=== PATIENT | female | born 1955 | race African-American/Black ===

== ENCOUNTER 2017-05-24 12:30 | Emergency (ER) | payer SELFPAY ==
[2017-05-24] MEDS ORDERED: cefTRIAXone\\ROCEPHIN 500 MG VIAL ONE (13:15)
[2017-05-24] MEDS ORDERED: Ketorolac Tromethamine 30 MG/ML VIAL ONE (13:15)
[2017-05-24] MEDS ORDERED: Lidocaine 1% 20 ML MDV ONE (13:17)
[2017-05-24 13:29] LABS: Bilirubin Negative (Negative); Blood, Urine Small (Negative); Clarity Cloudy (Clear); Glucose, Urine (Dipstick) Negative (Negative); Leukocyte Large (Negative); Nitrite Negative (Negative); Protein, Urine (Dipstick) Negative (Neg-Trace); Urobilinogen 0.2 mg/dL (0.2-1.0)
[2017-05-24 13:47] LABS: RBC/HPF 0-3 HPF (0-3); Squamous Epithelial 0-3 HPF (0-3); WBC/HPF 0-3 HPF (0-3)
[2017-05-24 13:48] LABS: Bacteria/HPF 1+ HPF (None Seen)
[2017-05-25 23:39] LABS: Chlamydia by PCR Not Detected (NotDetected); GC by PCR Not Detected (NotDetected)
== END 2017-05-24 14:02 | disposition home or self-care (01) ==
LOC: BURERS 12:30
DX: N73.9 Female pelvic inflammatory disease, unspecified (principal); E11.9 Type 2 diabetes mellitus without complications; K21.9 Gastro-esophageal reflux disease without esophagitis; E78.5 Hyperlipidemia, unspecified; I10 Essential (primary) hypertension; F31.9 Bipolar disorder, unspecified
CPT/HCPCS: 81003; 81015; 87480; 87491; 87510; 87591; 87660; 96372; J0696; J1885; J2001

== ENCOUNTER 2018-05-03 10:26 | Emergency (ER) | payer SELFPAY ==
[2018-05-03] MEDS ORDERED: Ibuprofen 800 MG TAB ONE (10:42)
[2018-05-03] MEDS ORDERED: traMADol HCl 50 MG TAB ONE (10:42)
--- NOTE | 2018-05-03 14:31 | RAD ---
TWO VIEW CHEST SERIES: Indication: Fall with chest injury, pain. FINDINGS: There is no evidence of consolidation, effusion. No free air beneath the hemidiaphragms. The cardiac silhouette is at upper limits of normal in size. No significant vascular congestion. Osseous degenera tive change is present. IMPRESSION: No focal consolidation. POS: [facility]
== END 2018-05-03 11:16 | disposition home or self-care (01) ==
LOC: BURERS 10:26
DX: S20.211A Contusion of right front wall of thorax, initial encounter (principal); E11.9 Type 2 diabetes mellitus without complications; K21.9 Gastro-esophageal reflux disease without esophagitis; E78.5 Hyperlipidemia, unspecified; I10 Essential (primary) hypertension; F31.9 Bipolar disorder, unspecified; W18.30XA Fall on same level, unspecified, initial encounter
CPT/HCPCS: 71046

== ENCOUNTER 2018-05-16 12:54 | Emergency (ER) | payer SELFPAY ==
[2018-05-16 13:29] LABS: #Basophils 0.1 thou/uL (0.0-0.2); #Eosinphils 0.1 thou/uL (0.0-0.7); #Lymphocytes 1.7 thou/uL (1.20-3.40); #Monocytes 0.2 thou/uL (0.11-0.59); #Neutrophils 3.5 thou/uL (1.40-6.50); %Basophils 1.4 % (0.0-1.0); %Eosinophils 1.3 % (0.0-10.0); %Lymphocytes 31.1 % (21.0-51.0); %Monocytes 4.3 % (0.0-10.0); %Neutrophils 61.9 % (42.0-75.0); Hemoglobin 12.1 g/dL (12.0-16.0); Mean Corpuscular HGB CONC 33.9 g/dL (32.0-36.0); Mean Corpuscular Hemoglobin 25.6 pg (27.0-31.0); Mean Corpuscular Volume 75.7 fL (78.0-98.0); Platelet Count 255 thou/uL (130-400); RBC Distribution Width 12.8 % (11.5-14.5); Red Blood Cell (RBC) Count 4.71 mill/uL (4.20-5.40); White Blood Cell (WBC) Count 5.6 thou/uL (4.8-10.8)
[2018-05-16] MEDS ORDERED: Ketorolac Tromethamine 30 MG/ML VIAL ONE (13:41)
[2018-05-16 13:44] LABS: ALT (SGPT) 9 U/L (8-55); AST (SGOT) 8 U/L (5-34); Albumin 3.8 g/dL (3.4-4.8); Alkaline Phosphatase 76 U/L (40-150); Anion Gap 12 mmol/L (10-20); BUN (Urea Nitrogen) 13 mg/dL (9.8-20.1); Bilirubin, Total 0.4 mg/dL (0.2-1.2); Calc. Creatinine Clearance 0 mL/min (70-130); Calcium 8.8 mg/dL (7.8-10.44); Carbon Dioxide 25 mmol/L (23-31); Chloride 111 mmol/L (98-107); Estimated GFR-MDRD Greater than 90; Globulin 2.6 g/dL (2.4-3.5); Glucose 146 mg/dL (80-115); Potassium 3.7 mmol/L (3.5-5.1); Protein, Total 6.4 g/dL (6.0-8.3); Sodium 144 mmol/L (136-145)
[2018-05-16 13:45] LABS: CKMB 0.8 ng/mL (0-6.6); Troponin I Less than 0.010 ng/mL (< 0.028)
--- NOTE | 2018-05-16 21:00 | RAD ---
RIGHT RIBS WITH PA CHEST: 05/16/2018 FINDINGS: The heart is normal in size, and the mediastinum shows no widening or shift. The lungs are fully inf lated and clear. No pneumothorax, pleural effusion, or focal pulmonary infiltrate is seen. Regarding the ribs, all ribs appear intact. No fractures could be appreciated. IMPRESSION: No acute findings. POS: HOME
== END 2018-05-16 13:56 | disposition home or self-care (01) ==
LOC: BURERS 12:54
DX: S20.211A Contusion of right front wall of thorax, initial encounter (principal); E11.9 Type 2 diabetes mellitus without complications; K21.9 Gastro-esophageal reflux disease without esophagitis; F31.9 Bipolar disorder, unspecified; E78.5 Hyperlipidemia, unspecified; I10 Essential (primary) hypertension; X58.XXXA Exposure to other specified factors, initial encounter
CPT/HCPCS: 36415; 80053; 82553; 84484; 85025; 93005; 96374; J1885

== ENCOUNTER 2018-06-20 18:12 | Emergency (ER) | payer SELFPAY ==
[~2018-06-20 18:12] MED LIST: Iopamidol 370 76% 100 ML VIAL ONE
--- NOTE | 2018-06-20 19:38 | CT ---
CT LUMBAR SPINE: 06/20/2018 HISTORY: A spiral CT of the lumbar spine is performed for evaluation of back pain following an injury. TECHNIQUE: Axial slices were acquired, and then coronal and sagittal reconstructions were done. FINDINGS: No fracture, dislocation, or acute bony change is seen. There is disk space narrowing at L5-S1 with prominent posterior osteophytes. The surrounding prevertebral soft tissues are unremarkable. Findin gs by level follow: T11-T12: Facet degenerative change, left greater than right. No acute change. T12-L1: No acute findings. Adrenal glands are seen at this level and appear normal. L1-L2: No acute findings. L2-L3: No acute findings. L3-L4: Very slight concentric bulge of the disk. Very mild facet and ligamentous hypertrophy withou t prominent central canal stenosis. L4-L5: Right lateral disk osteophyte complex causing some narrowing of the right neural foramen. Th ere may be contact with the right L4 root. There is some mild to moderate facet and ligamentous hype rtrophy at this level without severe stenosis of the central canal. L5-S1: A degenerated disk is present. There is a sequestered disk fragment to the right of midline, just below the disk space, with a vacuum phenomenon in it. Posterior osteophyte is prominent at thi s level. There is at least a moderate degree of bilateral foraminal stenosis. The visible SI joints are unremarkable. There is a small, 1 cm, sclerotic area on the iliac side of the left SI joint that is nondescript and probably not significant. No sclerotic areas are seen else where in bone. IMPRESSION: 1. No acute fracture is seen. 2. Degenerated disk at L5-S1 with sequestered fragment on the right side, below the disk space. Parish ateral moderate foraminal stenosis at this level. 3. Mild eccentric disk osteophyte bulge on the right at L4-L5. Minimal central canal stenosis here. Findings discussed with Dr. Mcmillan at 1910 hours on 06/20/2018. CODE CR POS: HOME
[2018-06-20 19:50] LABS: ALT (SGPT) 12 U/L (8-55); AST (SGOT) 9 U/L (5-34); Albumin 4.1 g/dL (3.4-4.8); Alkaline Phosphatase 94 U/L (40-150); Anion Gap 12 mmol/L (10-20); BUN (Urea Nitrogen) 14 mg/dL (9.8-20.1); Bilirubin, Total 0.3 mg/dL (0.2-1.2); Calc. Creatinine Clearance 0 mL/min (70-130); Carbon Dioxide 25 mmol/L (23-31); Chloride 109 mmol/L (98-107); Estimated GFR-MDRD 74; Globulin 2.7 g/dL (2.4-3.5); Glucose 117 mg/dL (80-115); Potassium 3.9 mmol/L (3.5-5.1); Protein, Total 6.8 g/dL (6.0-8.3); Sodium 142 mmol/L (136-145)
[2018-06-20 19:51] LABS: Band 1 % (5-11); Elliptocytes MODERATE= 6-15 cells (100X) (0-1/hpf); Eosinophils 3 % (0-10); Hemoglobin 12.8 g/dL (12.0-16.0); Lymphocytes 25 % (21-51); MDiff Complete? YES; Mean Corpuscular HGB CONC 32.7 g/dL (32.0-36.0); Mean Corpuscular Hemoglobin 27.3 pg (27.0-31.0); Mean Corpuscular Volume 83.4 fL (78.0-98.0); Mean Platelet Volume 11.9 fL (7.4-10.4); Monocytes 11 % (0-10); Neutrophil 60 % (42-75); Platelet Count 293 thou/uL (130-400); RBC Distribution Width 13.3 % (11.5-14.5); Red Blood Cell (RBC) Count 4.69 mill/uL (4.20-5.40); White Blood Cell (WBC) Count 6.1 thou/uL (4.8-10.8)
--- NOTE | 2018-06-20 19:52 | CT ---
CT CERVICAL SPINE: 06/20/2018 HISTORY: A spiral CT of the cervical spine is done for evaluation following trauma. TECHNIQUE: Axial slices were acquired, and then coronal and sagittal reconstructions were done. FINDINGS: There is some motion artifact on the reconstructions, which slightly degrades the images. No fracture or dislocation is appreciated at any cervical level. There is loss of the normal cervica l lordosis, which may be due to muscle spasm. The C1 to dens distance is normal, and the soft tissue s are normal in thickness. Findings by level follow: C1-C2: No acute findings. C2-C3: Marked facet arthritis on the right, causing moderate right foraminal stenosis. C3-C4: Severe right facet arthritis with moderately severe right foraminal stenosis. C4-C5: Mild bilateral facet arthritis with mild left foraminal stenosis. Some mild posterior osteop hyte without obvious central canal stenosis. C5-C6: Severe bilateral foraminal stenosis due to osteophytes. C6-C7: No stenosis. No acute findings. C7-T1: No acute findings. T1-T2: No acute findings. T2-T3: No acute findings. T3-T4: No acute findings. There is a nondescript ground glass opacity in the right upper lobe that measures close to 2 cm in si ze. Its margins are irregular. I reviewed the recent chest x-ray, dated 05/03/2018, as well as an o lder study, dated 01/02/2016. In neither case was this density visible on the plain radiographs, shana n in retrospect. IMPRESSION: 1. No fracture seen. Loss of normal cervical lordosis, which may be due to muscle spasm. 2. Severe degenerative changes throughout the entire cervical spine, as listed above. 3. A 2 cm ground glass opacity of the right upper lobe. The differential diagnosis includes tumor, an infectious process (most often opportunistic), an inflammatory process, or fibrosis. Chest CT ludmila mmended to see this area better. The patient will likely need referral to a thaw shed heater tender to determi ne next steps. Findings discussed with Dr. Mcmillan at 1910 hours on 06/20/2018. CODE CR POS: HOME
--- NOTE | 2018-06-20 21:01 | CT ---
CT CHEST WITH CONTRAST; 06/20/2018 HISTORY: A spiral CT of the chest was performed following an abnormal finding on a recent cervical spine CT. TECHNIQUE: Axial slices were acquired after giving a bolus of IV contrast. Coronal and sagittal reconstructions were done. The scan covered an area from the top of the lungs through the upper abdomen. FINDINGS: There is a poorly defined ground glass opacity in the right upper lobe. It is difficult to measure w ell due to the poor margins, but it is approximately 3 cm in size. The margins are soft but slightly irregular. There are no other pulmonary masses or ground glass opacities of concern elsewhere. Min imal dependent atelectasis is seen in the lung bases. There are no major lobar infiltrates. The mediastinum showed no sign of adenopathy, mass, or other acute change. The heart showed no evide nce of pericardial effusion. There are very few arterial calcifications in this patient. There migh t be a little bit of calcification in the LAD, but not much. There is a small hiatal hernia. A substantial portion of the liver is seen, which appears normal. The spleen is normal in size. The visible portions of the pancreas seem normal, though not all of the head is seen. The upper halves of the kidneys show some mild prominence of the renal pelves bilaterally. No other pathology is seen here. Each adrenal gland is identified and appears normal. The patient's spine shows some degenerative change throughout the thoracic region. There is no evide nce of fracture. The ribs appear intact. IMPRESSION: 1. Poorly defined ground glass opacity in the right upper lobe, as described above. It is approxima tely 3 cm in size. Differential considerations would include neoplasia (particularly adenocarcinoma or bronchoalveolar carcinoma), infectious entities (particularly opportunistic infections), inflammat ory causes (including interstitial pneumonias), and fibrosis. Pulmonology referral is recommended fo r further evaluation. 2. Small to medium sized hiatal hernia. Findings discussed with Dr. Mcmillan at 2025 hours on 06/20/2018. CODE CR POS: HOME
== END 2018-06-20 20:37 | disposition home or self-care (01) ==
LOC: BURERS 18:12
DX: M50.30 Other cervical disc degeneration, unspecified cervical region (principal); M51.36 Other intervertebral disc degeneration, lumbar region; J98.4 Other disorders of lung; E11.9 Type 2 diabetes mellitus without complications; K21.9 Gastro-esophageal reflux disease without esophagitis; E78.5 Hyperlipidemia, unspecified; I10 Essential (primary) hypertension; F31.9 Bipolar disorder, unspecified; V49.9XXA Car occupant (driver) (passenger) injured in unspecified traffic accident, initial encounter
CPT/HCPCS: 71260; 72125; 72131; 80053; 85025; 96360; A4216; G0390

== ENCOUNTER 2018-07-12 09:10 | Emergency (ER) | payer OTHER, SELFPAY ==
[2018-07-12 09:35] LABS: Bilirubin Negative (Negative); Blood, Urine Large (Negative); Clarity Cloudy (Clear); Glucose, Urine (Dipstick) Negative (Negative); Leukocyte Large (Negative); Nitrite Negative (Negative); Protein, Urine (Dipstick) 100 mg/dL (Neg-Trace); Urobilinogen 0.2 mg/dL (0.2-1.0); pH, Urine 5.5 (5.0-9.0)
[2018-07-12] MEDS ORDERED: traMADol HCl 50 MG TAB ONE (09:35)
[2018-07-12] MEDS ORDERED: Sulfameth/Trimethoprim DS 800-160mg TAB ONE (09:41)
[2018-07-12 09:46] LABS: Bacteria/HPF 1+ HPF (None Seen); Oval Fat Bodies/HPF 1+ HPF (None Seen); RBC/HPF 21-50 HPF (0-3); Renal Epithelial 0-3 HPF (0-3); Squamous Epithelial 0-3 HPF (0-3)
== END 2018-07-12 09:45 | disposition home or self-care (01) ==
LOC: BURERS 09:10
DX: N30.01 Acute cystitis with hematuria (principal); Z91.14 Patient's other noncompliance with medication regimen; E11.9 Type 2 diabetes mellitus without complications; K21.9 Gastro-esophageal reflux disease without esophagitis; E78.5 Hyperlipidemia, unspecified; I10 Essential (primary) hypertension; F31.9 Bipolar disorder, unspecified
CPT/HCPCS: 36416; 81003; 81015; 87086; 99284

== ENCOUNTER 2018-08-09 10:01 | Emergency (ER) | payer SELFPAY | END 2018-08-09 11:22 | disposition home or self-care (01) | LOC: BURERS 10:01 | DX: M54.12 Radiculopathy, cervical region (principal); E11.9 Type 2 diabetes mellitus without complications; E78.5 Hyperlipidemia, unspecified; F31.9 Bipolar disorder, unspecified; I10 Essential (primary) hypertension; K21.9 Gastro-esophageal reflux disease without esophagitis | CPT/HCPCS: 99283 ==

== ENCOUNTER 2020-05-16 07:56 | Emergency (ER) | payer SELFPAY ==
[2020-05-16 08:43] LABS: Bilirubin Negative (Negative); Blood, Urine Negative (Negative); Clarity Clear (Clear); Glucose, Urine (Dipstick) Negative (Negative); Ketone, Urine Negative (Negative); Leukocyte Small (Negative); Nitrite Negative (Negative); Protein, Urine (Dipstick) Negative (Neg-Trace); Specific Gravity, Urine 1.025 (1.005-1.030); Urobilinogen 0.2 mg/dL (Less than 2); pH, Urine 5.5 (5.0-9.0)
[2020-05-16 08:46] LABS: Bacteria/HPF Rare-Few HPF (None Seen); RBC/HPF 0-3 HPF (0-3); Squamous Epithelial 0-3 HPF (0-3); WBC/HPF 0-3 HPF (0-3)
[2020-05-16 08:48] LABS: Anion Gap 13 mmol/L (10-20); BUN (Urea Nitrogen) 17 mg/dL (9.8-20.1); Calc. Creatinine Clearance 0 mL/min (70-130); Calcium 8.9 mg/dL (7.8-10.44); Carbon Dioxide 24 mmol/L (23-31); Chloride 107 mmol/L (98-107); Estimated GFR-MDRD 89; Glucose 118 mg/dL (80-115); Potassium 3.7 mmol/L (3.5-5.1); Sodium 140 mmol/L (136-145)
== END 2020-05-16 08:54 | disposition home or self-care (01) ==
LOC: BURERS 07:56
DX: S39.012A Strain of muscle, fascia and tendon of lower back, initial encounter (principal); E11.9 Type 2 diabetes mellitus without complications; I10 Essential (primary) hypertension; K21.9 Gastro-esophageal reflux disease without esophagitis; E78.5 Hyperlipidemia, unspecified; F20.9 Schizophrenia, unspecified; F31.9 Bipolar disorder, unspecified; V43.62XA Car passenger injured in collision with other type car in traffic accident, initial encounter
CPT/HCPCS: 80048; 81003; 81015; 99283

== ENCOUNTER 2020-09-09 09:59 | Emergency (ER) | payer SELFPAY ==
[2020-09-09 10:43] LABS: Bilirubin Negative (Negative); Blood, Urine Negative (Negative); Clarity Slightly Cloudy (Clear); Glucose, Urine (Dipstick) Negative (Negative); Ketone, Urine Negative (Negative); Leukocyte Moderate (Negative); Nitrite Negative (Negative); Protein, Urine (Dipstick) Negative (Neg-Trace); Urobilinogen 0.2 mg/dL (Less than 2)
[2020-09-09 10:44] LABS: RBC/HPF 0-3 HPF (0-3)
[2020-09-09 10:45] LABS: Bacteria/HPF Rare-Few HPF (None Seen); Mucous/LPF Rare LPF (<2+); Squamous Epithelial 0-3 HPF (0-3)
[2020-09-09 10:52] LABS: Hemoglobin 13.7 g/dL (12.0-16.0); Mean Corpuscular HGB CONC 31.8 g/dL (32.0-36.0); Mean Corpuscular Hemoglobin 27.5 pg (27.0-31.0); Mean Corpuscular Volume 86.7 fL (78.0-98.0); Mean Platelet Volume 9.9 fL (7.4-10.4); Platelet Count 253 thou/uL (130-400); RBC Distribution Width 13.5 % (11.5-14.5); Red Blood Cell (RBC) Count 4.98 mill/uL (4.20-5.40); White Blood Cell (WBC) Count 4.6 thou/uL (4.8-10.8)
[2020-09-09] MEDS ORDERED: Ketorolac Tromethamine 30 MG/ML VIAL ONE (11:06)
[2020-09-09 11:07] LABS: ALT (SGPT) 15 U/L (8-55); AST (SGOT) 9 U/L (5-34); Albumin 4.2 g/dL (3.4-4.8); Alkaline Phosphatase 67 U/L (40-110); Anion Gap 14 mmol/L (10-20); BUN (Urea Nitrogen) 11 mg/dL (9.8-20.1); Bilirubin, Total 0.4 mg/dL (0.2-1.2); Calc. Creatinine Clearance 0 mL/min (70-130); Carbon Dioxide 25 mmol/L (23-31); Chloride 107 mmol/L (98-107); Estimated GFR-MDRD 77; Globulin 2.9 g/dL (2.4-3.5); Glucose 118 mg/dL (80-115); Potassium 4.3 mmol/L (3.5-5.1); Protein, Total 7.1 g/dL (6.0-8.3); Sodium 142 mmol/L (136-145)
[2020-09-09 11:34] LABS: #Eosinphils 0.1 thou/uL (0.0-0.7); #Lymphocytes 1.3 thou/uL (1.20-3.40); #Monocytes 0.3 thou/uL (0.11-0.59); #Neutrophils 2.9 thou/uL (1.40-6.50); %Basophils 0.7 % (0.0-1.0); %Eosinophils 1.4 % (0.0-10.0); %Lymphocytes 28.2 % (21.0-51.0); %Neutrophils 62.7 % (42.0-75.0); Anisocytosis SLIGHT = 6-15 cells (100X) (0-5/hpf); Elliptocytes SLIGHT = 2-5 cells (100X) (0-1/hpf); Giant Platelets MODERATE; Hypochromia SLIGHT = 6-15 cells (100X) (0-5/hpf); Large Platelets SLIGHT; MDiff Complete? YES; Microcytosis SLIGHT = 6-15 cells (100X) (0-5/hpf); Platelet Morphology Comment Appears Adequate
[2020-09-09] MEDS ORDERED: Sulfameth/Trimethoprim DS 800-160mg TAB ONE (11:59)
== END 2020-09-09 12:02 | disposition home or self-care (01) ==
LOC: BURERS 09:59
DX: N39.0 Urinary tract infection, site not specified (principal); I10 Essential (primary) hypertension; E11.9 Type 2 diabetes mellitus without complications; F20.9 Schizophrenia, unspecified; K21.9 Gastro-esophageal reflux disease without esophagitis; E78.5 Hyperlipidemia, unspecified; F31.9 Bipolar disorder, unspecified
CPT/HCPCS: 80053; 81003; 81015; 85025; 87086; 96374; J1885

== ENCOUNTER 2022-04-01 15:41 | Emergency (ER) | payer MEDICARE, OTHER ==
[2022-04-01 15:59] LABS: Bilirubin Negative (Negative); Blood, Urine Negative (Negative); Glucose, Urine (Dipstick) Negative (Negative); Ketone, Urine Negative (Negative); Leukocyte Small (Negative); Nitrite Negative (Negative); Protein, Urine (Dipstick) Negative (Neg-Trace)
[2022-04-01 16:01] LABS: Clarity Hazy (Clear)
[2022-04-01 16:02] LABS: Bacteria/HPF 2+ HPF (None Seen); RBC/HPF None Seen HPF (0-3); Squamous Epithelial 0-3 HPF (0-3)
[2022-04-01 16:20] LABS: #Basophils 0.1 thou/uL (0.0-0.2); #Eosinphils 0.1 thou/uL (0.0-0.7); #Lymphocytes 1.8 thou/uL (1.20-3.40); #Monocytes 0.5 thou/uL (0.11-0.59); %Basophils 0.9 % (0.0-1.0); %Eosinophils 2.2 % (0.0-10.0); %Lymphocytes 27.9 % (21.0-51.0); %Monocytes 7.4 % (0.0-10.0); %Neutrophils 61.6 % (42.0-75.0); Hemoglobin 11.9 g/dL (12.0-16.0); Mean Corpuscular HGB CONC 32.4 g/dL (32.0-36.0); Mean Corpuscular Hemoglobin 27.6 pg (27.0-31.0); Mean Corpuscular Volume 85.3 fL (78.0-98.0); Mean Platelet Volume 9.4 fL (7.4-10.4); Platelet Count 218 thou/uL (130-400); RBC Distribution Width 13.6 % (11.5-14.5); Red Blood Cell (RBC) Count 4.29 mill/uL (4.20-5.40); White Blood Cell (WBC) Count 6.6 thou/uL (4.8-10.8)
[2022-04-01] MEDS ORDERED: Ketorolac Tromethamine 30 MG/ML VIAL ONE (16:20)
[2022-04-01 16:35] LABS: ALT (SGPT) 15 U/L (8-55); AST (SGOT) 8 U/L (5-34); Albumin 3.7 g/dL (3.4-4.8); Alkaline Phosphatase 57 U/L (40-110); Anion Gap 13 mmol/L (10-20); BUN (Urea Nitrogen) 17 mg/dL (9.8-20.1); Bilirubin, Total 0.5 mg/dL (0.2-1.2); Calc. Creatinine Clearance 0 mL/min (70-130); Calcium 8.5 mg/dL (7.8-10.44); Carbon Dioxide 25 mmol/L (23-31); Chloride 108 mmol/L (98-107); Globulin 2.4 g/dL (2.4-3.5); Glucose 98 mg/dL (80-115); Potassium 3.7 mmol/L (3.5-5.1); Protein, Total 6.1 g/dL (5.8-8.1); Sodium 142 mmol/L (136-145)
[2022-04-01] MEDS ORDERED: Cephalexin 250 MG CAP ONE (16:58)
== END 2022-04-01 17:02 | disposition home or self-care (01) ==
LOC: BURERS 15:41
DX: N10 Acute pyelonephritis (principal); E11.9 Type 2 diabetes mellitus without complications; K21.9 Gastro-esophageal reflux disease without esophagitis; E78.5 Hyperlipidemia, unspecified; I10 Essential (primary) hypertension; Z79.899 Other long term (current) drug therapy; Z79.84 Long term (current) use of oral hypoglycemic drugs
CPT/HCPCS: 36415; 74176; 80053; 81003; 81015; 85025; 96361; 96374; J1885

== ENCOUNTER 2024-03-27 16:20 | Emergency (ER) | payer MEDICARE, OTHER ==
[2024-03-27] MEDS ORDERED: Ketorolac Tromethamine 30 MG (1 mL) VIAL ONE (16:42)
[2024-03-27 16:44] LABS: #Basophils 0.1 thou/uL (0.0-0.2); #Eosinphils 0.1 thou/uL (0.0-0.7); #Lymphocytes 1.6 thou/uL (1.20-3.40); #Monocytes 0.5 thou/uL (0.11-0.59); #Neutrophils 3.6 thou/uL (1.40-6.50); %Basophils 1.1 % (0.0-1.0); %Eosinophils 2.1 % (0.0-10.0); %Lymphocytes 26.8 % (21.0-51.0); %Monocytes 8.5 % (0.0-10.0); %Neutrophils 61.6 % (42.0-75.0); Hematocrit 37.9 % (36.0-47.0); Mean Corpuscular HGB CONC 31.6 g/dL (32.0-36.0); Mean Corpuscular Hemoglobin 27.1 pg (27.0-31.0); Mean Corpuscular Volume 85.8 fl (78.0-98.0); Mean Platelet Volume 9.5 fL (7.4-10.4); Platelet Count 235 10x3/uL (130-400); RBC Distribution Width 13.4 % (11.5-14.5); Red Blood Cell (RBC) Count 4.41 mill/uL (4.20-5.40); White Blood Cell (WBC) Count 5.8 10x3/uL (4.8-10.8)
[2024-03-27 17:02] LABS: ALT (SGPT) 15 U/L (8-55); AST (SGOT) 11 U/L (5-34); Alkaline Phosphatase 67 U/L (40-110); Anion Gap 11 mmol/L (10-20); BUN (Urea Nitrogen) 15 mg/dL (9.8-20.1); Bilirubin, Total 0.4 mg/dL (0.2-1.2); Calc. Creatinine Clearance 0 mL/min (70-130); Calcium 8.7 mg/dL (7.8-10.44); Carbon Dioxide 23 mmol/L (23-31); Chloride 112 mmol/L (98-107); Estimated GFR 81; Globulin 2.5 g/dL (2.4-3.5); Glucose 126 mg/dL (80-115); Potassium 3.9 mmol/L (3.5-5.1); Protein, Total 6.5 g/dL (5.8-8.1); Sodium 142 mmol/L (136-145)
== END 2024-03-27 18:00 | disposition home or self-care (01) ==
LOC: BURERS 16:20
DX: S20.212A Contusion of left front wall of thorax, initial encounter (principal); S30.1XXA Contusion of abdominal wall, initial encounter; W06.XXXA Fall from bed, initial encounter; I10 Essential (primary) hypertension
CPT/HCPCS: 71260; 74177; 80053; 85025; 96374; 99284; J1885; Q9967